=== PATIENT | male | born 1965 | race Caucasian/White ===

== ENCOUNTER → 2018-12-04 11:44 | Outpatient (CLI) | payer OTHER, MEDICARE, SELFPAY ==
--- NOTE | 2018-12-04 | CA_ITS ---
PROCEDURE: 2-D M-mode and color Doppler study INDICATIONS FOR THE TEST: Chest pain COPD Heart Murmur Tobacco Smoking+ Palpitations Fatigue+ Syncope Edema Hypertension+Diabetes Mellitus Rheumatic Fever SOB+MUNOZ+Obesity Hyperlipidemia= Family History HD+ Additional History CAD, DAT, CKD stage 5, AFIB, constrictive pericarditis, hx of pericardial window PATIENT INFORMATION HEIGHT: 67 WEIGHT: 140 GENDER: Male B/P: 168/72 2-D/M-MODE INTERPRETATION: 2-D MEASUREMENTS OBSERVED VALUES IN CMS Right Ventricular Dimension (RVDd) 4.0 Interventricular Septum (Thickness)(IVsd) 1.2 Left Ventricular Internal Dimensions(LVIDd) 4.2 Left Ventricular Posterior Wall (Thickness)(LVPWd) 1.1 Aortic Root 3.0 Aortic Cusp Separation 2.0 Left Atrial Dimensions (LAD) 3.6 2D 1. Left atrium is moderately enlarged, left ventricle is normal size, mild concentric left ventricular hypertrophy, visually estimated ejection fraction 50%, there appears to be moderate hypokinesis involving the distal septum and apical wall. 2. The right atrium and right ventricle are moderately enlarged, with mild reduced contractility of the right ventricle. 3. The aortic valve is heavily thickened and calcified with severe restriction the leaflet mobility. 4. The mitral valve has mitral annular calcification which extends and both anterior and posterior mitral leaflet. 5. The tricuspid valve leaflets are minimally thickened, there is no tricuspid stenosis. 6. The pulmonic valve is poorly visualized. 7. No significant pericardial effusion noted. DOPPLER INTERROGATION: 1. The maximum aortic out flow velocity recorded is 2.8 meters per second, resulting in a mean gradient across valve of 20 mmHg, valve area is not accurately calculated, morphologically there is severe aortic stenosis, there is no significant aortic insufficiency. 2. The mitral inflow velocities within normal range, there is no mitral stenosis, there is mild mitral regurgitation. Grade 1 diastolic dysfunction seen with tissue Doppler evidence of raised left atrial pressure. 3. There is moderate to severe tricuspid regurgitation noted, calculated right ventricular systolic pressure 72 mmHg consistent with severe pulmonary hypertension. Inferior vena cava is normal size with normal inspiratory collapse. CONCLUSION: 1. Biatrial enlargement, normal left ventricular size, mild concentric left ventricular hypertrophy, visually estimated ejection fraction 50% with segmental wall motion abnormality described above, grade 1 diastolic dysfunction seen with ti
== END ==
PROVIDERS: PCP Family Medicine; Visit Provider Urology
DX: I27.20 Pulmonary hypertension, unspecified (principal); I11.9 Hypertensive heart disease without heart failure
CPT/HCPCS: 93306